=== PATIENT | female | born 1950 | race Hispanic/Latino ===

== ENCOUNTER 2017-01-13 18:42 | Emergency (ER) | payer MEDICARE ==
[2017-01-13] MEDS ORDERED: MORPHINE IV ONE (19:51)
[2017-01-13] MEDS ORDERED: TORADOL IV ONE (19:51)
[2017-01-13] MEDS ORDERED: ZOFRAN IV ONE (19:51)
[2017-01-13] MEDS ORDERED: NACL ONE ×2 (20:31→21:03)
[2017-01-13 20:35] LABS: Basophils % (Auto) 0.4 % (0.0-1.8); Eosinophils % (Auto) 2.1 % (0.0-4.3); Hematocrit 38.6 % (30.3-42.9); Hemoglobin 12.7 gm/dl (10.1-14.3); Mean Corpuscular HGB Conc 33 % (30-34); Mean Corpuscular Hemoglobin 28 pg (28-32); Mean Corpuscular Volume 85 fl (79-97); Platelet Count 282 K/mm3 (140-440); Red Blood Count 4.57 M/mm3 (3.65-5.03); Red Cell Distribution Width 15.6 % (13.2-15.2); White Blood Count 6.6 K/mm3 (4.5-11.0)
[2017-01-13 20:54] LABS: Anion Gap 17 mmol/L; BUN/Creatinine Ratio 19; Blood Urea Nitrogen 13 mg/dL (7-17); Calcium 8.7 mg/dL (8.4-10.2); Carbon Dioxide 23 mmol/L (22-30); Glucose 91 mg/dL (65-100); Sodium 142 mmol/L (137-145)
[2017-01-13 20:55] LABS: Bacteria,Urine 2+ /HPF (Negative); Bilirubin,Urine NEG (Negative); Blood,Urine SM (Negative); Ketones,Urine NEG (Negative); Leukocyte Esterase,Urine MOD (Negative); Mucus,Urine FEW /HPF; Nitrite,Urine POS (Negative); Urobilinogen,Urine < 2.0 mg/dL (<2.0)
[2017-01-13 21:02] LABS: Creatine Kinase MB 3.6 ng/mL (0.0-4.0)
[2017-01-13 21:03] LABS: Creatine Kinase 126 units/L (30-135)
[2017-01-13] MEDS ORDERED: ROCEPHIN/NS 1 GM/50 ML 1 GM/50 ML BAG IV ONE (21:09)
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
[2017-01-13 23:39] VITALS: BP 152/85
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
== END 2017-01-14 00:20 | disposition home or self-care (01) ==
LOC: ED 18:42
DX: S16.1XXA Strain of muscle, fascia and tendon at neck level, initial encounter (principal); S46.911A Strain of unspecified muscle, fascia and tendon at shoulder and upper arm level, right arm, initial encounter; N39.0 Urinary tract infection, site not specified; K57.90 Diverticulosis of intestine, part unspecified, without perforation or abscess without bleeding; K31.89 Other diseases of stomach and duodenum; I10 Essential (primary) hypertension; E11.9 Type 2 diabetes mellitus without complications; V49.49XA Driver injured in collision with other motor vehicles in traffic accident, initial encounter; Y93.89 Activity, other specified; Y99.8 Other external cause status; Y92.89 Other specified places as the place of occurrence of the external cause
CPT/HCPCS: 36415; 70450; 71020; 72125; 73030; 74177; 80048; 81001; 82550; 82553; 84484; 85025; 87076; 87086; 87186; 93005; 93010; 96365; 96375; 99285; J0696; J1885; J2270; J2405; Q9967